=== PATIENT | male | born 1955 | race Two or more races ===

== ENCOUNTER 2018-08-31 10:47 | Day surgery (SDC) | payer OTHER ==
[2018-08-31] MEDS ORDERED: MIDAZOLAM 2 MG/2 ML VIAL IVP ONE (11:21)
--- NOTE | 2018-08-31 11:21 | PDANEPAE ---
ANE History of Present Illness L parascapular wound I&D ANE Past Medical History - GI History GERD: mild ANE Review of Systems Review of systems is: negative Review of Systems: - Exercise capacity Exercise capacity: >=4 METS ANE Patient History - Allergies Allergies/Adverse Reactions: No Known Allergies Allergy (Verified 08/31/18 11:45) - Home Medications Home medications: home medication list seen and reviewed Home Medications: Aspirin 81mg (*) 08/31/18 [Last Taken 08/09/18] Doxazosin Mesylate 08/31/18 [Last Taken 08/30/18] Fish Oil 1,000 mg Softgel 08/31/18 [Last Taken 07/28/18] Ibuprofen 08/31/18 [Last Taken 08/29/18] Multivitamin (*) 08/31/18 [Last Taken 07/28/18] Oxybutynin 08/31/18 [Last Taken 08/30/18] SIMVASTATIN 08/31/18 [Last Taken 08/30/18] Testosterone 100mg/ml IM inj (*) 08/31/18 [Last Taken 07/28/18] oxyCODONE IR 08/31/18 [Last Taken 08/17/18] - NPO status NPO Status: no food or drink >8 hours - Anes Hx Anes Hx: no prior problems - Family Anes Hx Family Anes Hx: none ANE Labs/Vital Signs - Vital Signs Vital Signs: reviewed preoperatively; see RN documention for details ANE Physical Exam - Airway Neck exam: FROM Mallampati Score: Class 1 Mouth exam: normal dental/mouth exam - Pulmonary Pulmonary: no respiratory distress - Cardiovascular Cardiovascular: regular rate and rhythym - ASA Status ASA Status: II ANE Anesthesia Plan Anesthesia Plan: GA w LMA
[2018-08-31] MEDS ORDERED: LR 1,000 ML IV ONE (11:36)
[2018-08-31] MEDS ORDERED: BACITRACIN 50,000 UNITS/10 ML SYR IRR ONE (12:02)
[2018-08-31] MEDS ORDERED: CEFEPIME HCL 2 GM in NS 100 ML IV ONE (12:11)
[2018-08-31] MEDS ORDERED: fentaNYL 100 MCG/2 ML INJ ONE ×2 (12:24→14:11)
[2018-08-31] MEDS ORDERED: ONDANSETRON 4 MG/2 ML VIAL ONE (12:24)
[2018-08-31] MEDS ORDERED: PROPOFOL 200 MG/20 ML VIAL ONE (12:24)
[2018-08-31] MEDS ORDERED: DEXAMETHASONE 4 MG/ML VIAL ONE (12:24)
[2018-08-31] MEDS ORDERED: LIDOCAINE 2% 100 MG/5 ML SYR ONE (12:24)
[2018-08-31] MEDS ORDERED: oxyCODONE IR 5 MG TAB PO PRN (13:21)
[2018-08-31] MEDS ORDERED: ONDANSETRON 4 MG/2 ML VIAL IVP PRN (13:21)
[2018-08-31] MEDS ORDERED: NALOXONE HCL 0.4 MG/ML INJ IVP PRN (13:21)
[2018-08-31] MEDS ORDERED: DEXAMETHASONE 4 MG/ML VIAL IVP PRN (13:21)
[2018-08-31] MEDS ORDERED: fentaNYL 100 MCG/2 ML INJ IVP PRN (13:21)
[2018-08-31] MEDS ORDERED: HYDROmorphONE/DILAUDID 2 MG/ML INJ IVP PRN (13:21)
[2018-08-31] MEDS ORDERED: HYDROCODONE/APAP 5/325 TAB PO PRN (13:21)
[2018-08-31] MEDS ORDERED: PROMETHAZINE HCL 25 MG/ML INJ IVP PRN (13:21)
[2018-08-31] MEDS ORDERED: ACETAMINOPHEN 500 MG TAB PO PRN (13:21)
[2018-08-31] MEDS ORDERED: MEPERIDINE 25 MG/0.5 ML AMP IVP PRN (13:21)
--- NOTE | 2018-08-31 13:22 | POSTANESTH ---
Post Anesthetic Evaluation Cardiovascular Status: Normal, Stable, Similar to Pre-Op Cond Respiratory Status: Normal, Stable, Similar to Pre-op Cond. Level of Consciousness/Mental Status: Can Participate in Eval, Mildly Sleepy, Arousable Pain Control: Adequate, Prn Tx Ordered Nausea/Vomiting Control: Adequate, Prn Tx Ordered Complications Possibly Related to Anesthesia: None Noted
--- NOTE | 2018-08-31 13:56 | POSTOPPROG ---
Post Op Note Date of Operation: 08/31/18 Surgeon: Walker Enriquez Cloth Washer Back Tender: YANDY Augustin Anesthesia: GET(General Endotracheal) Pre-op Diagnosis: Left shoulder parascapular infection Post-op Diagnosis: Left shoulder parascapular infection Indication: Left shoulder parascapular infection Procedure: Left shoulder I/D Findings: Left shoulder parascapular infection Inf/Abcess present in the surg proc area at time of surgery?: Yes Depth: Deep Incisional (Fascial) EBL: 50-100 Drains: Hemovac Specimen(s): Tissue and swab sent for eval. Aerobic, Anaerobic, Fungal and please hold for 14 days for P. Acnes.
[2018-08-31] MEDS ORDERED: HYDROCODONE/APAP 5/325 TAB ONE (14:17)
--- NOTE | 2018-08-31 14:53 | GOP ---
DATE OF OPERATION: 08/31/2018 SURGEON: Walker Enriquez MD DRYING TUNNEL OPERATOR: Brigette Kahn PA-C ANESTHESIA: General. ANESTHESIOLOGIST: Dr. Brown PREOPERATIVE DIAGNOSIS: Left shoulder parascapular surgical wound postoperative infection. POSTOPERATIVE DIAGNOSIS: Left shoulder parascapular surgical wound postoperative infection. PROCEDURE PERFORMED: Incision, irrigation, drainage, and debridement of left shoulder parascapular wound infection. FINDINGS: The patient's punctate sinus tract has expanded overnight to now approximately 5 mm in length. The surrounding area is with mild erythema over a maximum width of 3 mm. Remainder of the incision was benign in appearance. More clear-cut purulence is expressible from the wound today. After opening of the wound, there was abundant purulent fluid within an encapsulated space consistent with postoperative subcutaneous infected hematoma and abscess. There were no significant adhesions. The infection space extended approximately a finger's length i.e. approximately 4 to 5 cm inferiorly to the incision and approximately 2 to 2.5 cm superior to the incision with approximately 1 cm medial and lateral to the incision. This remained suprafascial throughout. There was no foul odor. There were some infected appearing soft tissues within the sinus tract that were necrotic that were excised. Otherwise, no other necrotic tissue is noted. SPECIMENS: Tissue and fluid cultures x2 prior to IV 2 g of cefepime. ESTIMATED BLOOD LOSS: 50 cc. INDICATIONS: This is a 63-year-old male who underwent left shoulder rotator cuff repair arthroscopically and open resection of a lipoma on 08/03/2018. He presented to me 2 days ago in my clinic for concerns of wound drainage. I aspirated the fluid collection and sent these for labs, and this was found to be consistent with infection last night with a positive Gram stain. Cultures are still pending. The patient does not become toxic, has not become febrile, has relatively little symptoms other than wound drainage. However, given the above, urgent I and D was recommended. The risks, benefits, alternatives were discussed with the patient. All his questions were answered prior to surgery. He provided a signed and witnessed informed consent, which was placed in his chart. Please see history and physical for additional information. DESCRIPTION OF PROCEDURE: The patient was identified in then preop holding area and his left shoulder was signed and designated as the operative site. The patient was confirmed in bilateral lower extremity toes and SCDs. 2 g of IV cefepime was held until after cultures were obtained. The patient was taken back to the operative room, placed supine on the OR table, and general anesthesia was obtained. An axillary roll was placed for him to be positioned in the lateral decubitus position with the left shoulder up. Right upper extremity was placed on a well-padded arm board in approximately 80 degrees of forward flexion. Bone Foam was then placed over that arm and the left upper extremity was placed across a well-padded Bone Foam with the shoulder in approximately 70 degrees of forward elevation and neutral rotation. Olivas bag was used for positioning. Abundant padding was placed around both heels and ankles, as well as around both knees. Left parascapular region was then prepped and draped in the usual sterile manner. A 5 cm incision was placed through the prior incision for the lipoma resection. With gentle spreading using a hemostat, abundant purulence was encountered. This was suction irrigated. Both fluid and tissue were sent for cultures x2. All sutures within the wound were debrided with a rongeur. I used my finger to sweep in throughout the extent of the abscess and no adhesions were palpable. The extent of the abscess was palpated and measured. Using a curette, the entire capsular layer was carefully debrided and any loose tissues were removed with a rongeur. 6 L of normal saline with bacitracin was used to irrigate the wound in its entirety. Initially about 1 L was used and then further debridement was performed to assure all soft tissues were debrided and removed from the abscess space. Once a meticulous irrigation and debridement was completed, a Davol drain was placed through a separate stab incision with a trocar with just superior to the incision. The drain was then laid down in the inferior portion of the abscess, such that gravity dependent fluid would be most effectively evacuated. The drain was sewn in place. The wound was then closed in layers. The deep dermal layer, i.e., the deep portion of this abscess cavity was closed with multiple 2-0 PDS sutures. The skin was closed with multiple interrupted 3- 0 nylon vertical mattress sutures. Sterile postoperative surgical dressings were applied. The left upper extremity was placed back in his abduction pillow shoulder immobilizer to protect his rotator cuff repair. Please note that the entire exposed skin was draped with Ioban in order to segregated the arthroscopic portals from any direct contact with the infected fluids from the parascapular abscess. The patient was extubated and transferred to a gurney. He was then transferred to the PACU in stable condition. TOURNIQUET TIME: None. DRAINS: 1 Davol drain. IMPLANTS: None. COMPLICATIONS: None. DISPOSITION: The patient was extubated and transferred to PACU in stable condition. /[id number]/MODL MTDD
[2018-08-31 15:11] VITALS: BP 123/81
[2018-08-31] MEDS ORDERED: AMOXICILLIN/CLAVULANATE POT 875/125 MG TAB PO SCH (21:00)
== END 2018-08-31 15:16 | disposition home or self-care (01) ==
LOC: FSGY 10:47
PROVIDERS: ATTEND Orthopaedic Surgery
DX: T81.49XA Infection following a procedure, other surgical site, initial encounter (principal); L02.414 Cutaneous abscess of left upper limb
CPT/HCPCS: J0692; J1100; J2001; J2250; J2405; J2704; J3010